=== PATIENT | male | born 1945 | race Caucasian/White ===

== ENCOUNTER 2019-02-15 13:57 | Emergency (ER) | payer BC, MEDICARE ==
--- NOTE | 2019-02-15 14:21 | ER Document Report ---
ED General - General Chief Complaint: General Weakness Stated Complaint: DIZZINESS Time Seen by Provider: 02/15/19 14:08 Primary Care Provider: DEZ TEAGUE MD [ACTIVE STAFF] - Follow up in 3-5 days Notes: Patient is a 73-year-old male that presents to the emergency department for chief complaint of lightheadedness. Patient states that he was playing slots, and started to feel lightheaded while he was at the gambling facility, and therefore EMS was called and brought him to the emergency department. He states he did not eat or drink much, but had worked the night prior, have been out in the sun throughout the morning as well. He does have a history of diabetes, COPD but is not on oxygen. He also has a history of a AAA, he states that it was measured at 3.5 cm, recently had it checked last week, but does not know the results of his ultrasound. He denies having any chest pain, shortness of breat h, abdominal pain, nausea, vomiting. He overall states he feels much better after receiving fluids by EMS. Per EMS the patient's blood pressure was in the 80s. Past Medical History: Hypertension, COPD, diabetes, AAA Past Surgical History: Denies surgical history Social History: Admits to smoking cigarettes, denies alcohol or drug use. Family History: Reviewed and noncontributory for presenting illness Allergies: Reviewed, see documented allergy list. REVIEW OF SYSTEMS: Other than noted above, the 12 point review of systems was reviewed with the patient and were negative, all pertinent findings are included in the HPI. PHYSICAL EXAMINATION: Vital signs reviewed, nursing noted reviewed. GENERAL: Elderly male, no acute distress. HEAD: Atraumatic, normocephalic. EYES: Eyes appear normal, extraocular movements intact, sclera anicteric, conjunctiva are normal. ENT: nares patent, oropharynx clear without exudates. Moist mucous membranes. NECK: Normal range of motion, supple without lymphadenopathy LUNGS: Breath sounds clear to auscultation bilaterally and equal. No wheezes rales or rhonchi. HEART: Regular rate and rhythm without murmurs ABDOMEN: Soft, nontender, normoactive bowel sounds. No rebound, guarding, or rigidity. No masses appreciated. No pulsatile masses appreciated. EXTREMITIES: Nontender, good range of motion, no pitting or edema. NEUROLOGICAL: No focal neurological deficits. Moves all extremities spontaneously Motor and sensory grossly intact on exam. PSYCH: Normal mood, normal affect. SKIN: Warm, Dry, normal turgor, no rashes or lesions noted on exposed skin - Related Data Allergies/Adverse Reactions: No Known Allergies Allergy (Unverified 02/15/19 16:19) Past Medical History - Social History Smoking Status: Current Every Day Smoker Family History: Reviewed & Not Pertinent Physical Exam - Vital signs Vitals: Temp Pulse Resp BP Pulse Ox 98.4 F 66 16 107/59 L 99 02/15/19 14:06 02/15/19 14:06 02/15/19 14:06 02/15/19 14:06 02/15/19 14:06 Course - Re-evaluation Re-evalutation: Patient seen and examined vital signs reviewed. Laboratory data and/or imaging were ordered as appropriate for the patient's presenting symptoms and complaint, with consideration of any critical or life threatening conditions that may be associated with their obtained history and exam as noted above. Patient was treated with IV fluids, 2 L total Results were reviewed when available and demonstrated mild hypokalemia, his creatinine was 1.7, no prior baseline for comparison, possibly related to dehydration, patient states he still makes urine, did provide urine sample in the ED. Ultrasound of the aorta was ordered as well, which did not demonstrate significant aortic aneurysm at this time. The patient was re-evaluated and was stable, blood pressure was stable and improved Evaluation was most consistent with lightheadedness, mild hypokalemia, dehydration, patient appeared much improved on reevaluation, and was discharged home. Results were discussed with the patient at this point, after careful consideration I feel that that patient can be discharged from the emergency department, the patient was educated treatments and reasons to return to the emergency department based on their presumed diagnosis as noted above, they were advised to followup with a primary care physician in 2-3 days. Patient was agreeable to plan of care. *Note is created using voice recognition software and may contain spelling, syntax or grammatical errors. Laboratory 02/15/19 02/15/19 02/15/19 14:13 14:13 14:13 WBC 5.6 RBC 4.50 Hgb 13.4 L Hct 39.8 MCV 89 MCH 29.8 MCHC 33.6 RDW 15.0 H Plt Count 172 Seg Neutrophils % 72.7 Lymphocytes % 17.5 Monocytes % 7.9 Eosinophils % 1.3 Basophils % 0.6 Absolute Neutrophils 4.1 Absolute Lymphocytes 1.0 Absolute Monocytes 0.4 Absolute Eosinophils 0.1 Absolute Basophils 0.0 Sodium 142.5 Potassium 3.4 L Chloride 105 Carbon Dioxide 29 Anion Gap 9 BUN 21 H Creatinine 1.71 H Est GFR ( Amer) 48 L Est GFR (Non-Af Amer) 39 L Glucose 116 H Calcium 8.9 Total Bilirubin 0.4 Direct Bilirubin 0.2 Neonat Total Bilirubin Not Reportable Neonat Direct Bilirubin Not Reportable Neonat Indirect Bili Not Reportable AST 16 L ALT 21 Alkaline Phosphatase 81 Creatine Kinase 60 CK-MB (CK-2) 2.17 Troponin I < 0.012 Total Protein 6.1 L Albumin 3.5 Urine Color Urine Appearance Urine pH Ur Specific [place] Urine Protein Urine Glucose (UA) Urine Ketones Urine Blood Urine Nitrite Urine Bilirubin Urine Urobilinogen Ur Leukocyte Esterase Urine WBC (Auto) Urine RBC (Auto) U Hyaline Cast (Auto) Squamous Epi Cells Auto Urine Mucus (Auto) Urine Ascorbic Acid 02/15/19 15:20 WBC RBC Hgb Hct MCV MCH MCHC RDW Plt Count Seg Neutrophils % Lymphocytes % Monocytes % Eosinophils % Basophils % Absolute Neutrophils Absolute Lymphocytes Absolute Monocytes Absolute Eosinophils Absolute Basophils Sodium Potassium Chloride Carbon Dioxide Anion Gap BUN Creatinine Est GFR ( Amer) Est GFR (Non-Af Amer) Glucose Calcium Total Bilirubin Direct Bilirubin Neonat Total Bilirubin Neonat Direct Bilirubin Neonat Indirect Bili AST ALT Alkaline Phosphatase Creatine Kinase CK-MB (CK-2) Troponin I Total Protein Albumin Urine Color SUSIE Urine Appearance SLIGHTLY-CLOUDY Urine pH 5.0 Ur Specific [place] 1.021 Urine Protein 100 H Urine Glucose (UA) NEGATIVE Urine Ketones NEGATIVE Urine Blood NEGATIVE Urine Nitrite NEGATIVE Urine Bilirubin NEGATIVE Urine Urobilinogen 2.0 H Ur Leukocyte Esterase TRACE H Urine WBC (Auto) 10 Urine RBC (Auto) 6 U Hyaline Cast (Auto) 1 Squamous Epi Cells Auto 2 Urine Mucus (Auto) FEW Urine Ascorbic Acid NEGATIVE Renal Ultrasound 02/15/19 15:21 IMPRESSION: NORMAL RENAL AND BLADDER ULTRASOUND. - Vital Signs Vital signs: Temp Pulse Resp BP Pulse Ox 97.5 F 66 14 128/88 H 96 02/15/19 17:26 02/15/19 14:06 02/15/19 17:01 02/15/19 17:01 02/15/19 17:01 - Laboratory Result Diagrams: 02/15/19 14:13 02/15/19 14:13 Laboratory results interpreted by me: 02/15/19 02/15/19 02/15/19 14:13 14:13 15:20 Hgb 13.4 L RDW 15.0 H Potassium 3.4 L BUN 21 H Creatinine 1.71 H Est GFR ( Amer) 48 L Est GFR (Non-Af Amer) 39 L Glucose 116 H AST 16 L Total Protein 6.1 L Urine Protein 100 H Urine Urobilinogen 2.0 H Ur Leukocyte Esterase TRACE H - EKG Interpretation by Me Additional EKG results interpreted by me: EKG demonstrates sinus rhythm with a ventricular rate of 62 bpm, normal axis, QTC 492 ms, no ST elevation. No prior for comparison. Discharge - Discharge Clinical Impression: Lightheadedness, Dehydration Condition: Stable Disposition: HOME, SELF-CARE Instructions: Near Syncopal Episode ([facility]) Additional Instructions: Once a please follow-up with her primary care physician, please maintain your hydration as much as possible throughout the day, drinking plenty of fluids at least 2-1/2 to 3 L of fluids daily. Referrals: DEZ TEAGUE MD [ACTIVE STAFF] - Follow up in 3-5 days
[2019-02-15 14:26] LABS: ABSOLUTE EOSINOPHILS # (AUTO) 0.1 10^3/uL (0.0-0.6); ABSOLUTE MONOCYTES (AUTO) 0.4 10^3/uL (0.1-1.4); ABSOLUTE NEUT (AUTO) 4.1 10^3/uL (1.7-8.2); BASOPHILS % (AUTO) 0.6 % (0-2); EOSINOPHILS % (AUTO) 1.3 % (0-6); HEMATOCRIT 39.8 % (37.9-51.0); HEMOGLOBIN 13.4 g/dL (13.5-17.0); LYMPHOCYTES % (AUTO) 17.5 % (13-45); MEAN CORPUSCULAR HEMOGLOBIN 29.8 pg (27.0-33.4); MEAN CORPUSCULAR HGB CONC 33.6 g/dL (32.0-36.0); MEAN CORPUSCULAR VOLUME 89 fl (80-97); MONOCYTES % (AUTO) 7.9 % (3-13); PLATELET COUNT 172 10^3/uL (150-450); SEGMENTED NEUTROPHILS % (AUTO) 72.7 % (42-78); TOTAL CELLS COUNTED % (AUTO) 100 %; WHITE BLOOD COUNT 5.6 10^3/uL (4.0-10.5)
[2019-02-15] MEDS ORDERED: RINGERS SOLUTION,LACTATED 1,000 ML IV ONE (14:47)
[2019-02-15 14:48] LABS: ALANINE AMINOTRANSFERASE 21 U/L (21-72); ALBUMIN 3.5 g/dL (3.5-5.0); ALKALINE PHOSPHATASE 81 U/L (38-126); ANION GAP 9 (5-19); ASPARTATE AMINO TRANSFERASE 16 U/L (17-59); BILIRUBIN,DIRECT 0.2 mg/dL (0.0-0.4); BILIRUBIN,TOTAL 0.4 mg/dL (0.2-1.3); BLOOD UREA NITROGEN 21 mg/dL (7-20); CALCIUM 8.9 mg/dL (8.4-10.2); CARBON DIOXIDE 29 mmol/L (22-30); CHLORIDE 105 mmol/L (98-107); CREATINE KINASE 60 U/L (55-170); GLUCOSE 116 mg/dL (75-110); POTASSIUM 3.4 mmol/L (3.6-5.0); SODIUM 142.5 mmol/L (137-145); TOTAL PROTEIN 6.1 g/dL (6.3-8.2)
[2019-02-15 14:59] LABS: CREATINE KINASE MB 2.17 ng/mL (<4.55); TROPONIN I < 0.012 ng/mL
[2019-02-15 15:38] LABS: APPEARANCE,URINE SLIGHTLY-CLOUDY; BILIRUBIN,URINE NEGATIVE (NEGATIVE); COLOR,URINE AMBER; GLUCOSE, URINE NEGATIVE (NEGATIVE); KETONES,URINE NEGATIVE (NEGATIVE); LEUKOCYTE ESTERASE,URINE TRACE (NEGATIVE); NITRITE,URINE NEGATIVE (NEGATIVE); PROTEIN,URINE 100 mg/dL (NEGATIVE); URINE SPECIFIC GRAVITY 1.021
--- NOTE | 2019-02-15 17:13 | RADIOLOGY REPORT (SQ) ---
EXAM DESCRIPTION: [employer] COMPLETED DATE/TIME: 02/15/2019 5:06 pm REASON FOR STUDY: near syncope hx AAA COMPARISON: None. TECHNIQUE: Dynamic and static grayscale images acquired of the kidneys and bladder and recorded on P ACS. Additional selected color Doppler and spectral images recorded. LIMITATIONS: None. FINDINGS: RIGHT KIDNEY: Normal size. Normal echogenicity. No solid or suspicious masses. No h ydronephrosis. No calcifications. LEFT KIDNEY: Normal size. Normal echogenicity. No solid or suspicious masses. No hydronephrosi s. No calcifications. BLADDER: No masses. OTHER FINDINGS: No other significant finding. IMPRESSION: NORMAL RENAL AND BLADDER ULTRASOUND. TECHNICAL DOCUMENTATION: JOB ID: [id number] [employer]- All Rights Reserved Reading location - IP/workstation name: [email or web address]
[2019-02-15 17:20] VITALS: BP 128/88
--- NOTE | 2019-02-15 18:38 | EKG REPORT ---
SEVERITY:- BORDERLINE ECG - SINUS RHYTHM PROBABLE LEFT ATRIAL ABNORMALITY BORDERLINE PROLONGED QT INTERVAL : Confirmed by: Helena Taylor MD 15-Feb-2019 18:37:26
== END 2019-02-15 17:26 | disposition home or self-care (01) ==
LOC: ER 13:57
DX: E86.0 Dehydration (principal); R42 Dizziness and giddiness; R53.1 Weakness; E87.6 Hypokalemia; I10 Essential (primary) hypertension; J44.9 Chronic obstructive pulmonary disease, unspecified; E11.9 Type 2 diabetes mellitus without complications; F17.210 Nicotine dependence, cigarettes, uncomplicated; I71.4 Abdominal aortic aneurysm, without rupture
CPT/HCPCS: 93005; 99284; 96360; 36415; 82553; 82550; 85025; 80053; 81001; 84484; 76775; 93010; J7120